=== PATIENT | male | born 1960 | race African-American/Black ===

== ENCOUNTER 2025-01-28 17:25 | Inpatient (IN) | payer OTHER ==
[2025-01-28 19:01] VITALS: BMI 26.4
[2025-01-28] MEDS ORDERED: LOPERAMIDE HCL 2 MG CAPSULE PO PRN (19:17)
[2025-01-28] MEDS ORDERED: DICYCLOMINE HCL 10 MG CAPSULE PO PRN (19:17)
[2025-01-28] MEDS ORDERED: ACETAMINOPHEN 325 MG TABLET (FP) PO PRN (19:17)
[2025-01-28] MEDS ORDERED: guaiFENesin 600 MG TABLET.ER (FP) PO PRN (19:17)
[2025-01-28] MEDS ORDERED: BISMUTH SUBSALICYLATE 524 MG/30 ML PO PRN (19:17)
[2025-01-28] MEDS ORDERED: ONDANSETRON *ODT* 4 MG TABLET SL PRN (19:17)
[2025-01-28] MEDS ORDERED: MAGNESIUM HYDROX 2400MG/30ML ORAL SUSPENSION 30 ML CUP PO PRN (19:17)
[2025-01-28] MEDS ORDERED: IBUPROFEN 400 MG TABLET (FP) PO PRN (19:17)
[2025-01-28] MEDS ORDERED: IBUPROFEN 600 MG TABLET (FP) PO PRN (19:17)
[2025-01-28] MEDS ORDERED: NALOXONE (NARCAN) HCL 4 MG/0.1 ML SPRAY NS PRN (19:17)
[2025-01-28] MEDS ORDERED: BENZONATATE 200 MG CAPSULE PO PRN (19:17)
[2025-01-28] MEDS ORDERED: POLYETHYLENE GLYCOL (HEALTHYLAX) 3350 17 GM PACKET PO PRN (19:17)
[2025-01-28] MEDS ORDERED: BENZOCAINE/MENTHOL (CHLORASEPTIC ) LOZENGE MM PRN (19:17)
[2025-01-28] MEDS ORDERED: MAG HYDROX/AL HYDROX/SIMETH 30 ML UNIT-DOSE CUP PO PRN (19:17)
[2025-01-28] MEDS ORDERED: MELATONIN 5 MG TABLETS ONE (22:25)
[2025-01-28] MEDS: MELATONIN 5 MG TABLETS PO SCH (22:28)
[2025-01-28] MEDS: THIAMINE 100 MG TABLET PO SCH (22:28)
[2025-01-28] MEDS: hydrOXYzine PAMOATE 25 MG CAPSULE (FP) PO PRN (22:54)
[2025-01-28] MEDS: METHOCARBAMOL 500 MG TABLET PO PRN (22:54)
[2025-01-29 09:17] LABS: MCHC 31.8 g/dl (32.3-36.5); MEAN CELL VOLUME 89.6 fl (79.0-92.2); MEAN PLT VOLUME 9.8 fl (9.4-12.4); RDW 13.7 % (12.2-16.4)
[2025-01-29 09:26] LABS: GLUCOSE,RANDOM 78 mg/dL (74-106); TOT PROT 6.7 g/dl (6.4-8.2)
[2025-01-29 09:27] LABS: CO2 24 mmol/L (21-32)
[2025-01-29 09:29] LABS: ALK PHOS 111 U/L (40-150)
[2025-01-29 09:32] LABS: CREATININE 0.99 mg/dL (0.55-1.3); SGOT/AST 136 U/L (5-34); SGPT/ALT 175 U/L (0-55)
[2025-01-29] MEDS: KETOCONAZOLE 2 % SHAMPOO 120 ML BOTTLE TP SCH ×2 (10:00→13:34)
[2025-01-29] MEDS: LISINOPRIL 10 MG TABLET PO SCH (10:25)
[2025-01-29] MEDS: PRENATAL VITAMINS W/ FOLIC ACID TABLET (FP) PO SCH (10:25)
[2025-01-30 09:09] VITALS: BP 126/66; PULSE 65; RESP 16; TEMP 98.7
== END 2025-01-30 10:35 | disposition home or self-care (01) | DRG 774 ==
LOC: YASAS 17:25 → Y6N 22:10
PROVIDERS: ADMIT Allergy & Immunology; ATTEND Counselor Addiction (Substance Use Disorder)
PROC: HZ2ZZZZ Detoxification Services for Substance Abuse Treatment (ICD-10-PCS; principal; 2025-01-28)
DX: F10.230 Alcohol dependence with withdrawal, uncomplicated (principal); F14.10 Cocaine abuse, uncomplicated; I10 Essential (primary) hypertension; Z87.891 Personal history of nicotine dependence; Z85.46 Personal history of malignant neoplasm of prostate
CPT/HCPCS: 36415; 80053; 80307; 85027; 86780; 93005; 93010